=== PATIENT | male | born 1995 | race Caucasian/White ===

== ENCOUNTER 2017-09-06 19:49 | Emergency (ER) | payer SELFPAY ==
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
[2017-09-06] MEDS ORDERED: KETOROLAC TROMETHAMINE 60 MG/2 ML VIAL IM ONE (21:41)
[2017-09-06] MEDS ORDERED: 0.9 % SODIUM CHLORIDE 1,000 ML IV ONE (21:52)
[2017-09-06 22:09] LABS: BASOPHILS % 0.4 (0.0-1.5); EOSINOPHILS % 3.7 % (0.0-6.8); MONOCYTES % 6.4 % (0.0-11.0); NEUTROPHILS # 4.6 # k/uL (1.4-7.7)
[2017-09-06 22:19] LABS: eGFR (African) > 60; eGFR (Non-African) > 60
[2017-09-06 22:37] VITALS: BP 116/49
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
== END 2017-09-06 22:30 ==
LOC: ED 19:49
DX: M54.2 Cervicalgia (principal); M25.512 Pain in left shoulder; Y04.0XXA Assault by unarmed brawl or fight, initial encounter; Y93.9 Activity, unspecified; Y92.149 Unspecified place in prison as the place of occurrence of the external cause; Y99.9 Unspecified external cause status
CPT/HCPCS: 70450; 72125; 73030; 80053; 85025; J1885; J7030; 96365; 96372; 99283; S1016